=== PATIENT | male | born 1970 | race Caucasian/White ===

== ENCOUNTER 2018-01-18 10:23 | Emergency (ER) | payer BC, OTHER ==
[2018-01-18 10:50] VITALS: BP 148/92
--- NOTE | 2018-01-18 11:23 | UC ---
Throat Pain/Nasal Mihir HPI - HPI Summary HPI Summary: Patient woke up with a sore throat, afraid he has the flu - History of Current Complaint Chief Complaint: UCGeneralIllness Stated Complaint: THROAT COMPLAINT Time Seen by Provider: 01/18/18 10:59 Hx Obtained From: Patient Onset/Duration: Sudden Onset, Lasting Hours Severity: Moderate Pain Intensity: 5 Associated Signs & Symptoms: Positive: Dysphagia - Allergies/Home Medications Allergies/Adverse Reactions: Allergies Allergy/AdvReac Type Severity Reaction Status Date / Time No Known Allergies Allergy Verified 01/18/18 10:50 Home Medications: Home Medications NK [No Home Medications Reported] 01/18/18 [History Confirmed 01/18/18] PMH/Surg Hx/FS Hx/Imm Hx Previously Healthy: Yes - Surgical History Surgical History: None - Family History Known Family History: Negative: Cardiac Disease, Hypertension - Social History Alcohol Use: Rare Substance Use Type: None Smoking Status (MU): Never Smoked Tobacco When Did the Patient Quit Smoking/Using Tobacco: 3 months ago - Immunization History Most Recent Influenza Vaccination: none Review of Systems All Other Systems Reviewed And Are Negative: Yes Constitutional: Positive: Negative Skin: Positive: Negative Eyes: Positive: Negative ENT: Positive: Sore Throat Respiratory: Positive: Negative Cardiovascular: Positive: Negative Gastrointestinal: Positive: Negative Genitourinary: Positive: Negative Motor: Positive: Negative Neurovascular: Positive: Negative Musculoskeletal: Positive: Negative Neurological: Positive: Negative Psychological: Positive: Negative Is Patient Immunocompromised?: No Physical Exam Triage Information Reviewed: Yes Appearance: Well-Appearing, Well-Nourished, Pain Distress Vital Signs: Initial Vital Signs Temp 98.1 F 01/18/18 10:47 Pulse 80 01/18/18 10:47 Resp 18 01/18/18 10:47 BP 148/92 01/18/18 10:47 Pulse Ox 100 01/18/18 10:47 Vital Signs Reviewed: Yes Eye Exam: Normal ENT: Positive: TMs normal, Tonsillar swelling - of left tonsil, large tonsilolith noted Dental Exam: Normal Neck exam: Normal Respiratory Exam: Normal Respiratory: Positive: Chest non-tender, Lungs clear, Normal breath sounds Cardiovascular Exam: Normal Cardiovascular: Positive: RRR, No Murmur, Pulses Normal Abdominal Exam: Normal Abdomen Description: Positive: Nontender, No Organomegaly, Soft Musculoskeletal Exam: Normal Neurological Exam: Normal Psychological Exam: Normal Skin Exam: Normal Throat Pain/Nasal Course/Dx - Course Course Of Treatment: hx obtained, exam performed ,meds reviewed, removed tonsil stone with tongue depressor. educated patient on tonsil stones. - Differential Dx/Diagnosis Provider Diagnosis: Tonsil stone Discharge - Sign-Out/Discharge Documenting (check all that apply): Patient Departure All imaging exams completed and their final reports reviewed: No Studies - Discharge Plan Condition: Stable Disposition: HOME Referrals: No Primary Care Phys,NOPCP [Primary Care Provider] - Additional Instructions: 1. salt water gargles 2. Increase fluid intake and get plenty of rest 3. Advil or tylneol for pain and aches - Billing Disposition and Condition Condition: STABLE Disposition: Home
== END 2018-01-18 11:24 | disposition home or self-care (01) ==
LOC: EDSEX → UCCORT 10:23
DX: J35.8 Other chronic diseases of tonsils and adenoids (principal)
CPT/HCPCS: 87651; 99211; G0463

== ENCOUNTER 2019-04-30 09:49 | Emergency (ER) | payer BC ==
[2019-04-30 11:51] VITALS: BP 151/101
--- NOTE | 2019-04-30 12:11 | UC ---
Hand/Wrist HPI - HPI Summary HPI Summary: 38-year-old male presents with complaints of left wrist pain. Patient states he fell at work 3 weeks ago and landed on an outstretched arm. States initially he had some bruising and swelling over the radial wrist that has since resolved. States pain has improved however has been persistent. Notes pain is worse with supination and pronation. Denies any numbness or tingling. - History Of Current Complaint Chief Complaint: UCUpperExtremity Stated Complaint: S/P FALL LEFT ARM INJURY Time Seen by Provider: 04/30/19 11:45 Hx Obtained From: Patient Pain Intensity: 0 - Allergies/Home Medications Allergies/Adverse Reactions: Allergies Allergy/AdvReac Type Severity Reaction Status Date / Time No Known Allergies Allergy Verified 04/30/19 11:45 Home Medications: Home Medications NK [No Home Medications Reported] 01/18/18 [History Confirmed 04/30/19] PMH/Surg Hx/FS Hx/Imm Hx Previously Healthy: Yes - Denies significant PMH - Surgical History Surgical History: None - Family History Known Family History: Negative: Cardiac Disease, Hypertension - Social History Occupation: Employed Full-time Lives: With Family Alcohol Use: Occasionally Substance Use Type: None Smoking Status (MU): Former Smoker When Did the Patient Quit Smoking/Using Tobacco: 1 months ago - Immunization History Most Recent Influenza Vaccination: none Review of Systems All Other Systems Reviewed And Are Negative: Yes Constitutional: Positive: Negative Skin: Positive: Bruising Respiratory: Positive: Negative Cardiovascular: Positive: Negative Gastrointestinal: Positive: Negative Genitourinary: Positive: Negative Motor: Negative: Weakness Neurovascular: Negative: Decreased Sensation Musculoskeletal: Positive: Other: - See HPI Neurological/Mental Status: Positive: Negative Is Patient Immunocompromised?: No Physical Exam - Summary Physical Exam Summary: GENERAL APPEARANCE: Well developed, well nourished, alert and cooperative, and appears to be in no acute distress. CARDIAC: Normal S1 and S2. No S3, S4 or murmurs. Rhythm is regular. There is no peripheral edema, cyanosis or pallor. Extremities are warm and well perfused. Capillary refill is less than 2 seconds. Peripheral pulses intact. LUNGS: Clear to auscultation without rales, rhonchi, wheezing or diminished breath sounds. ABDOMEN: Positive bowel sounds. Soft, nondistended, nontender. No guarding or rebound. No masses or hepatosplenomegally. MUSKULOSKELETAL: Normal muscular development. Normal gait. EXTREMITIES: Anatomical snuffbox tenderness. No gross deformity, ecchymosis, erythema or edema. Full ROM. Circulation and sensation intact. SKIN: Skin normal color, texture and turgor with no lesions or eruptions. Triage Information Reviewed: Yes Vital Signs: Initial Vital Signs Temp 99.1 F 04/30/19 11:46 Pulse 100 04/30/19 11:46 Resp 15 04/30/19 11:46 BP 151/101 04/30/19 11:46 Pulse Ox 100 04/30/19 11:46 Vital Signs Reviewed: Yes Diagnostics - Radiology No standard instances Radiology Interpretation Completed By: Radiologist Summary of Radiographic Findings: Order Information: WRIST LEFT 3+ VWS. Indication: Left wrist pain. 3 views of the wrist demonstrates no fracture. No other bone or joint abnormality is identified. IMPRESSION: NO FRACTURE OF THE WRIST IS NOTED. Hand/Wrist Course/Dx - Course Course Of Treatment: 38-year-old male presents with complaints of left wrist pain. Patient states he fell at work 3 weeks ago and landed on an outstretched arm. States initially he had some bruising and swelling over the radial wrist that has since resolved. States pain has improved however has been persistent. Notes pain is worse with supination and pronation. Denies any numbness or tingling. Afebrile. Hypertensive otherwise vital signs stable. X-ray showed no acute fracture or dislocation. Reviewed results with the patient. With his persistent pain and tenderness over the anatomic snuffbox I still have a suspicion for a scaphoid fracture and I'm recommending further evaluation by orthopedic surgery within 3-5 days. Patient states that he has a thumb spica splint at home and he has been encouraged to use this until he is evaluated by orthopedic. Also recommending conservative treatment including RICE and over- the-counter analgesics. Anticipatory guidance and warning symptoms were reviewed with the patient. Verbalizes understanding and agrees with plan of care. - Differential Dx/Diagnosis Differential Diagnosis/HQI/PQRI: Contusion, Dislocation, Fracture, Sprain Provider Diagnosis: Left wrist injury Discharge ED - Sign-Out/Discharge Documenting (check all that apply): Patient Departure All imaging exams completed and their final reports reviewed: Yes - Discharge Plan Condition: Stable Disposition: HOME Patient Education Materials: Wrist Sprain (ED) Referrals: Lazaro Booker MD [Medical Doctor] - 3 Days (Call for appointment.) No Primary Care Phys,NOPCP [Primary Care Provider] - [facility] [place] [facility]YS[facility]IAN REFERRAL [Outside] Additional Instructions: The x-ray performed in the clinic today showed no evidence of a fracture however with your persistent pain I would like you to be further evaluated by orthopedic surgery. Rest the hand as much as possible. Wear the splint you have at home. You may remove to shower but should wear at all other times. Apply ice to the affected area for 15-20 minutes at least 4 times a day to help with the pain and swelling. Elevate the arm to help reduce swelling. Take acetaminophen (Tylenol) or ibuprofen (Advil, Motrin) according to directions as needed for pain. Follow up with orthopedic surgery in 3-5 days for further evaluation. Call for appointment. Your blood pressure was elevated in the clinic today. It is recommended that you follow up with a primary care provider within the next 4 weeks to have this rechecked. I have provided you with the contact information for the [facility] physician referral service if you need assistance with establishing with a provider. Seek immediate medical attention if you have severe pain not managed with pain medication, you are unable to walk or bear any weight, develop numbness or tingling in the hand or fingers, or have any worsening of symptoms. - Billing Disposition and Condition Condition: STABLE Disposition: Home
== END 2019-04-30 12:46 | disposition home or self-care (01) ==
LOC: UCCORT 09:49
DX: S60.212A Contusion of left wrist, initial encounter (principal); W19.XXXA Unspecified fall, initial encounter; Y92.9 Unspecified place or not applicable; Y99.0 Civilian activity done for income or pay; Z87.891 Personal history of nicotine dependence
CPT/HCPCS: 99211; G0463